=== PATIENT | male | born 1990 | race Caucasian/White ===

== ENCOUNTER 2020-07-19 11:44 | Outpatient (REF) | payer OTHER, SELFPAY ==
[2020-07-19 14:55] LABS: Cholesterol 210 mg/dL; Glucose Fasting 103 mg/dL (60-99); HDL Cholesterol 42 mg/dL; LDL Cholesterol Calculated 139 mg/dl; Triglycerides 148 mg/dL
== END 2020-07-19 11:45 | disposition home or self-care (01) ==
LOC: HO.10HDL 11:44
PROVIDERS: Visit Provider Family Medicine
DX: E78.00 Pure hypercholesterolemia, unspecified (principal); Z83.3 Family history of diabetes mellitus
CPT/HCPCS: 36415; 80061; 82947